=== PATIENT | female | born 1995 | race Caucasian/White ===

== ENCOUNTER 2023-03-02 04:03 | Day surgery (SDC) | payer OTHER ==
[2023-02-28 12:31] VITALS: BMI 31.0
[~2023-03-02 04:03] MED LIST: BACITRACIN ZINC 15 GM TUBE TOPICAL OINTMENT TP ONE; LIDOCAINE 1%/EPI 1:100000 (20 ML MULTI DOSE VIAL) IJ ONE; OFLOXACIN 0.3% OPHTHALMIC SOLUTION 5 ML BOTTLE AS ONE; THROMBIN (BOVINE) 5,000 UNIT VIAL TP ONE; ceFAZolin SODIUM 1 GM VIAL IVPB ONE
[2023-03-02] MEDS ORDERED: THROMBIN (BOVINE) 5,000 UNIT VIAL TP ONE ×2 (07:32→12:46)
[2023-03-02] MEDS ORDERED: OFLOXACIN 0.3% OPHTHALMIC SOLUTION 5 ML BOTTLE OU ONE (09:45)
[2023-03-02] MEDS ORDERED: OFLOXACIN 0.3% OPHTHALMIC SOLUTION 5 ML BOTTLE AS ONE ×2 (09:45→13:12)
[2023-03-02] MEDS ORDERED: ONDANSETRON 4 MG/2 ML VIAL ONE ×2 (11:22→16:30)
[2023-03-02] MEDS ORDERED: LIDOCAINE HCL/PF 2% SDV 5ML VIAL ONE (11:22)
[2023-03-02] MEDS ORDERED: DEXAMETHASONE SOD PHOSPHATE 4 MG/1 ML VIAL ONE (11:22)
[2023-03-02] MEDS ORDERED: MIDAZOLAM HCL 2 MG/2 ML SINGLE DOSE VIAL ONE (11:22)
[2023-03-02] MEDS ORDERED: PROPOFOL 40 ML ONE (11:22)
[2023-03-02] MEDS ORDERED: SUCCINYLCHOLINE CHLORIDE 200 MG/10 ML SYRINGE ONE (11:28)
[2023-03-02] MEDS ORDERED: LIDOCAINE 1%/EPI 1:100000 (20 ML MULTI DOSE VIAL) IJ ONE (11:51)
[2023-03-02] MEDS ORDERED: PROPOFOL 20 ML ONE (12:28)
[2023-03-02] MEDS ORDERED: BACITRACIN ZINC 15 GM TUBE TOPICAL OINTMENT ONE (13:28)
[2023-03-02] MEDS ORDERED: BACITRACIN ZINC 15 GM TUBE TOPICAL OINTMENT TP ONE (13:53)
[2023-03-02] MEDS ORDERED: oxyCODONE HCL 5 MG TABLET PO PRN (14:10)
[2023-03-02] MEDS ORDERED: ONDANSETRON 4 MG/2 ML VIAL IVPUSH PRN (14:10)
[2023-03-02] MEDS ORDERED: PROMETHAZINE HCL 25 MG/1 ML VIAL IVPB PRN (14:10)
[2023-03-02] MEDS ORDERED: ACETAMINOPHEN 1000 MG/100 ML BAG IVPB PRN (14:11)
[2023-03-02] MEDS ORDERED: LACTATED RINGERS SOLUTION 1,000 ML IV SCH (14:15)
[2023-03-02] MEDS ORDERED: ONDANSETRON 4 MG/2 ML VIAL IVPUSH ONE (16:30)
[2023-03-02 16:47] VITALS: PULSE 66; RESP 16
[2023-03-02] MEDS ORDERED: oxyCODONE HCL 5 MG TABLET PO ONE (17:28)
[2023-03-02] MEDS ORDERED: oxyCODONE HCL 5 MG TABLET ONE (17:30)
[2023-03-02 18:56] VITALS: BP 118/66; TEMP 96.6
== END 2023-03-02 18:25 | disposition home or self-care (01) ==
LOC: JASUSAT 04:03
PROVIDERS: ATTEND Otolaryngology
PROC: 09U607Z Supplement Left Middle Ear with Autologous Tissue Substitute, Open Approach (ICD-10-PCS; 2023-03-02)
PROC: 09B1XZZ Excision of Left External Ear, External Approach (ICD-10-PCS; principal; 2023-03-02 11:00)
DX: H72.92 Unspecified perforation of tympanic membrane, left ear (principal)
CPT/HCPCS: 81025; 94760